=== PATIENT | female | born 1960 | race Caucasian/White ===

== ENCOUNTER → 2020-07-08 | Outpatient (CLI) | payer OTHER ==
[~2020-07-08] MED LIST: ACIDOPHILUS1 EAC2 PO; ALLEGRA ALLERG180 MG PO; ATENOLOL50 MG PO; AZELASTINE137 MCG/0. INH; DIVIGEL0.25 MG TD; EFFEXOR XR75 MG PO; FIBER THERAPY500 MG PO; FLEXERIL 10 MG10 MG PO; FLOVENT DISKUS50 MCG INH; KLOR-CON 1010 MEQ PO; LASIX 40 MG TAB40 MG PO; MELATONIN10 M2 PO; MULTIVITAMINS1 EAC1 PO; PERCOCET 5-3251 EACH PO; PERCOCET 7.5-31 EACH PO; PREMARIN1.25 MG PO; PREVACID30 MG PO; SEROQUEL50 MG PO; SINGULAIR10 MG PO; VITAMIN B-12500 MCG PO; VITAMIN D31000 UNI1 PO; WELLBUTRIN SR150 MG PO; ZOFRAN4 MG PO
== END ==
LOC: KOH-I 15:54
DX: M25.561 Pain in right knee (principal); M25.562 Pain in left knee
CPT/HCPCS: 73562